=== PATIENT | female | born 1985 | race African-American/Black ===

== ENCOUNTER 2016-10-15 22:15 | Emergency (ER) | payer MEDICAID ==
[~2016-10-15] VITALS: Ht 160 cm; Wt 56.8 kg
[~2016-10-15 22:15] MED LIST: METR-1 PO
[2016-10-15 22:16] VITALS: BP 134/70; PULSE 98; RESP 16; TEMP 98.3; O2SAT 100
[2016-10-16] MEDS ORDERED: IBUP-232 PO (21:54)
== END 2016-10-16 01:12 | disposition left against medical advice (07) ==
LOC: NED 22:15
DX: R10.9 Unspecified abdominal pain (principal); R11.0 Nausea; Z53.21 Procedure and treatment not carried out due to patient leaving prior to being seen by health care provider
CPT/HCPCS: 99281

== ENCOUNTER 2016-10-16 18:37 | Emergency (ER) | payer MEDICAID ==
[~2016-10-16] VITALS: Ht 162.6 cm; Wt 65.0 kg
[2016-10-16 18:39] VITALS: BP 117/65; PULSE 96; RESP 16; TEMP 99; O2SAT 96
[2016-10-16] MEDS ORDERED: SODIUM CHLOR 0.9% 1000 ML INJ 1,000 ML IV SCH (18:53)
--- NOTE | 2016-10-16 18:58 | PD ---
HPI Chief Complaint: Complaint Time Seen by Provider: 18:54 Travel History International Travel<30 days: No Contact w/Intl Traveler<30days: No Traveled to known affect area: No History of Present Illness HPI 31-year-old Afro-Uzbek female coming in with right upper abdominal/flank pain , which she states has been present since September 30. Patient states last menstrual period ended on October 07. Patient denies fever, chills, vomiting, or diarrhea. Patient states she has had some intermittent nausea. Patient has no cough or chest pain. Patient states clear vaginal discharge since ending her period on 07 October. Patient states that pain is constant, and not worse with eating. Patient states it's about 8/10 today. Patient has no history of kidney stones in the past. Patient denies urinary burning, frequency, or urgency. Patient has no known drug allergies. PFSH Past Medical History Medical History: Denies Significant Hx Blood Disorders: No Diminished Hearing: No Reproductive: Yes (PROLONGED BLEEDING AFTER CHILDBIRTH. DX DYSFUNCTIONAL UTERINE BLEEDING.) Immunizations Current: No ?: Unknown LMP: 09-30-16 : 4 Para: 3 Miscarriage: 3 : 2 Past Surgical History Surgical History: No Previous Surgery Social History Alcohol Use: Yes (occas. ) Tobacco Use: Yes (1/2 cig ) Substance Use: No Allergies-Medications (Allergen,Severity, Reaction): Coded Allergies: No Known Allergies (Verified , 10/16/16) Reported Meds & Prescriptions Reported Meds & Active Scripts Active No Active Prescriptions or Reported Medications Review of Systems General / Constitutional: No: Fever, Chills Eyes: No: Visual changes HENT: No: Headaches Cardiovascular: No: Chest Pain or Discomfort Respiratory: No: Shortness of Breath Gastrointestinal: Positive: Nausea, Abdominal Pain (see history present illness.), No: Vomiting Genitourinary: Positive: Flank Pain, No: Urgency, Frequency, Dysuria Musculoskeletal: No: Pain Skin: No Rash Neurologic: No: Weakness Psychiatric: No: Depression Endocrine: No: Polydipsia Hematologic/Lymphatic: No: Easy Bruising Physical Exam Narrative GENERAL: Patient appears in no acute distress. Patient is ambulatory to the room without difficulty. SKIN: Warm and dry. Normal color. Normal turgor. HEAD: Atraumatic. Normocephalic. EYES: Pupils equal and round. No scleral icterus. No injection or drainage. ENT: No nasal bleeding or discharge. Mucous membranes pink and moist. NECK: Trachea midline. No JVD. CARDIOVASCULAR: Regular rate and rhythm. RESPIRATORY: No accessory muscle use. Clear to auscultation. Breath sounds equal bilaterally. GASTROINTESTINAL: Abdomen soft, mild right upper quadrant and question right lower quadrant discomfort, nondistended. Mild right CVA tenderness. Hepatic and splenic margins not palpable. PELVIC: Pelvic performed with nursing lay out and detail drafter. Outer labia appear normal. Pelvic shows yellowish discharge with odor. Patient is uncomfortable with speculum and bimanual exam. GC chlamydia and wet prep is sent to the lab. MUSCULOSKELETAL: Extremities without clubbing, cyanosis, or edema. No obvious deformities. NEUROLOGICAL: Awake and alert. No obvious cranial nerve deficits. Motor grossly within normal limits. Five out of 5 muscle strength in the arms and legs. Normal speech. PSYCHIATRIC: Appropriate mood and affect; insight and judgment normal. Data Data Last Documented VS Vital Signs Date Time Temp Pulse Resp B/P Pulse Ox O2 Delivery O2 Flow Rate FiO2 10/16/16 19:22 97 Room Air 10/16/16 18:39 99.0 96 16 117/65 Orders Complete Blood Count With Diff (10/16/16 18:53) Comprehensive Metabolic Panel (10/16/16 18:53) Lipase (10/16/16 18:53) Lactic Acid (10/16/16 18:53) Prothrombin Time / Inr (Pt) (10/16/16 18:53) Act Partial Throm Time (Ptt) (10/16/16 18:53) Urinalysis - C+S If Indicated (10/16/16 18:53) Iv Access Insert/Monitor (10/16/16 18:53) Ecg Monitoring (10/16/16 18:53) Oximetry (10/16/16 18:53) NPO (10/16/16 18:53) Ondansetron Inj (Zofran Inj) (10/16/16 19:00) Sodium Chlor 0.9% 1000 Ml Inj (Ns 1000 M (10/16/16 18:53) Sodium Chloride 0.9% Flush (Ns Flush) (10/16/16 19:00) Ketorolac Inj (Toradol Inj) (10/16/16 19:00) Ed Urine Pregnancytest Poc (10/16/16 18:53) Gc And Chlamydia Pcr (10/16/16 20:55) Wet Prep Profile (10/16/16 20:55) Azithromycin Powd Pack (Zithromax Powd P (10/16/16 21:45) Ceftriaxone Inj (Rocephin Inj) (10/16/16 21:45) Lidocaine 1% Inj (50 Ml) (Xylocaine 1% I (10/16/16 21:45) Labs Laboratory Tests Test 10/16/16 10/16/16 19:18 21:02 White Blood Count 8.2 TH/MM3 Red Blood Count 3.96 MIL/MM3 Hemoglobin 11.8 GM/DL Hematocrit 35.5 % Mean Corpuscular Volume 89.6 FL Mean Corpuscular Hemoglobin 29.7 PG Mean Corpuscular Hemoglobin 33.2 % Concent Red Cell Distribution Width 15.0 % Platelet Count 300 TH/MM3 Mean Platelet Volume 9.5 FL Neutrophils (%) (Auto) 53.5 % Lymphocytes (%) (Auto) 36.1 % Monocytes (%) (Auto) 6.7 % Eosinophils (%) (Auto) 2.8 % Basophils (%) (Auto) 0.9 % Neutrophils # (Auto) 4.4 TH/MM3 Lymphocytes # (Auto) 3.0 TH/MM3 Monocytes # (Auto) 0.6 TH/MM3 Eosinophils # (Auto) 0.2 TH/MM3 Basophils # (Auto) 0.1 TH/MM3 CBC Comment DIFF FINAL Differential Comment Prothrombin Time 10.2 SEC Prothromb Time International 0.9 RATIO Ratio Activated Partial 25.6 SEC Thromboplast Time Urine Color YELLOW Urine Turbidity CLEAR Urine pH 6.0 Urine Specific [place] 1.017 Urine Protein NEG mg/dL Urine Glucose (UA) NEG mg/dL Urine Ketones NEG mg/dL Urine Occult Blood NEG Urine Nitrite NEG Urine Bilirubin NEG Urine Urobilinogen LESS THAN 2.0 MG/DL Urine Leukocyte Esterase NEG Urine RBC 1 /hpf Urine WBC 3 /hpf Urine Squamous Epithelial 3 /hpf Cells Urine Mucus FEW /lpf Microscopic Urinalysis Comment CULT NOT INDICATED Sodium Level 140 MEQ/L Potassium Level 3.6 MEQ/L Chloride Level 105 MEQ/L Carbon Dioxide Level 27.4 MEQ/L Anion Gap 8 MEQ/L Blood Urea Nitrogen 7 MG/DL Creatinine 0.63 MG/DL Estimat Glomerular Filtration 135 ML/MIN Rate Random Glucose 87 MG/DL Lactic Acid Level 1.5 mmol/L Calcium Level 9.1 MG/DL Total Bilirubin 0.3 MG/DL Aspartate Amino Transf 16 U/L (AST/SGOT) Alanine Aminotransferase 20 U/L (ALT/SGPT) Alkaline Phosphatase 59 U/L Total Protein 6.9 GM/DL Albumin 3.5 GM/DL Lipase 158 U/L Clue Cells (Wet Prep) NONE SEEN Vaginal Trichomonas (Wet Prep) NONE SEEN Vaginal Yeast (Wet Prep) NONE SEEN MDM Medical Decision Making Medical Screen Exam Complete: Yes Emergency Medical Condition: Yes Differential Diagnosis Abdominal pain. Urinary tract infection. Renal colic. Ovarian cyst. Appendicitis. Narrative Course Patient is medically stable at time of exam. Patient is given 30 mg Toradol IV as well as 4 mg Zofran IV. Patient is given normal saline 1000 mL bolus IV. Labs ordered including CBC, CMP, PT PTT and INR, lipase, urinalysis All labs come back as negative. Patient seen by myself and Dr. Velez who recommends pelvic exam. Patient is pain-free on reassessment after Toradol and Zofran. Pelvic exam is performed with nursing staff lay out and detail drafter. GC chlamydia and wet prep are ordered. Wet prep shows no clue cells, no Trichomonas, and no yeast. GC and chlamydia are still pending. Patient is discussed with Dr. Khoury. Patient is going to be empirically treated with Rocephin IM and azithromycin by mouth. This was discussed with the patient. Patient is discharged home, and is to follow up with primary care or [facility] as needed. Patient is given ibuprofen 600 mg 4 times a day when necessary pain. Patient can return to emergency department worsening symptoms as needed. Diagnosis Primary Impression: Abdominal pain Qualified Code: R10.30 - Lower abdominal pain Referrals: [facility] Patient Instructions: General Instructions Additional Instructions: Patient is going to be empirically treated with Rocephin IM and azithromycin by mouth. This was discussed with the patient. Patient is discharged home, and is to follow up with primary care or women[facility] as needed. Patient is given ibuprofen 600 mg 4 times a day when necessary pain. Patient can return to emergency department worsening symptoms as needed. Med/Other Pt SpecificInfo: Prescription(s) given Scripts No Active Prescriptions or Reported Meds Disposition: DISCHARGE HOME Condition: Stable Ashkan Gupta Oct 16, 2016 18:58
[2016-10-16] MEDS ORDERED: ONDANSETRON HCL 4 MG/2 ML VIAL IVP ONE (19:00)
[2016-10-16] MEDS ORDERED: KETOROLAC TROMETHAMINE 30 MG/ML (IVP) VIAL IVP ONE (19:00)
[2016-10-16] MEDS ORDERED: SODIUM CHLORIDE 0.9% FLUSH 5 ML FLUSH IVF PRN (19:00)
[2016-10-16 19:22] VITALS: O2SAT 97
[2016-10-16 19:47] LABS: BLOOD, URINE NEG (NEG); COMMENT (UR) CULT NOT INDICATED; CULTURE IF INDICATED CULT NOT INDICATED; GLUCOSE,URINE NEG (NEG); KETONE, URINE NEG (NEG); MUCUS URINE FEW /lpf (OCC); NITRITE,URINE NEG (NEG); SQUAMOUS EPITHELIAL CELL URINE 3 /hpf (0-5); URINE COLOR YELLOW (YELLW/STRAW)
[2016-10-16 19:55] LABS: AUTOMATED NEUTROPHIL # 4.4 TH/MM3 (1.8-7.7); BASOPHIL # 0.1 TH/MM3 (0-0.2); BASOPHIL % 0.9 % (0.0-2.0); EOSINOPHIL # 0.2 TH/MM3 (0-0.4); EOSINOPHIL % 2.8 % (0.0-4.0); HEMATOCRIT 35.5 % (35.0-46.0); HEMO FLAGS DIFF FINAL; LYMPH % 36.1 % (9.0-44.0); MEAN CELL VOLUME 89.6 FL (80.0-100.0); MEAN CORPUSCULAR HEMOGLOBIN 29.7 PG (27.0-34.0); MEAN CORPUSCULAR HGB CONC 33.2 % (32.0-36.0); MONO % 6.7 % (0.0-8.0); NEUT % 53.5 % (16.0-70.0); PLATELET COUNT 300 TH/MM3 (150-450); RED BLOOD COUNT 3.96 MIL/MM3 (4.00-5.30); WHITE BLOOD COUNT 8.2 TH/MM3 (4.0-11.0)
[2016-10-16 19:56] LABS: APTT (PATIENT) 25.6 SEC (24.3-30.1); INTERNATIONAL NORMALIZED RATIO 0.9 RATIO; PROTHROMBIN TIME - PATIENT 10.2 SEC (9.8-11.6)
[2016-10-16 20:11] LABS: ANION GAP 8 MEQ/L (5-15); BICARBONATE 27.4 MEQ/L (21.0-32.0); BLOOD UREA NITROGEN 7 MG/DL (7-18); CHLORIDE 105 MEQ/L (98-107); GLOMERULAR FILTRATION RATE 135 ML/MIN (>89); POTASSIUM 3.6 MEQ/L (3.5-5.1); SODIUM (NA) 140 MEQ/L (136-145)
[2016-10-16 20:15] LABS: ALKALINE PHOSPHATASE 59 U/L (45-117); ALT (GPT) 20 U/L (10-53); AST (GOT) 16 U/L (15-37); TOTAL BILIRUBIN ADULT 0.3 MG/DL (0.2-1.0)
[2016-10-16] MEDS ORDERED: LIDOCAINE HCL 1% 50 ML VIAL IM ONE (21:45)
[2016-10-16] MEDS ORDERED: cefTRIAXone 250 MG VIAL IM ONE (21:45)
[2016-10-16] MEDS ORDERED: AZITHROMYCIN PWD FOR SUSP 1 GM PACKET PO ONE (21:45)
[2016-10-16] MEDS ORDERED: IBUP-232 PO (21:54)
[2016-10-16 23:15] LABS: CHLAMYDIA PCR NOT DETECTED (NOT DETECT); NEISSERIA PCR NOT DETECTED (NOT DETECT)
== END 2016-10-16 22:26 | disposition home or self-care (01) ==
LOC: NEPC 18:37
DX: R10.9 Unspecified abdominal pain (principal); Z72.0 Tobacco use
CPT/HCPCS: 80053; 81001; 83605; 83690; 84703; 85025; 85610; 85730; 87210; 87491; 87591; 96361; 96372; 96374; 96375; 99284; J0696; J1885; J2405; J7030

== ENCOUNTER 2017-01-05 18:56 | Emergency (ER) | payer MEDICAID ==
[~2017-01-05 18:56] MED LIST changes: +IBUP-232 PO; -METR-1 PO
[2017-01-05 18:57] VITALS: BP 110/66; PULSE 94; RESP 16; TEMP 98.5; O2SAT 100
== END 2017-01-05 21:19 | disposition left against medical advice (07) ==
LOC: NED 18:56
DX: R22.0 Localized swelling, mass and lump, head (principal)
CPT/HCPCS: 99281

== ENCOUNTER 2017-05-30 11:10 | Emergency (ER) | payer MEDICAID ==
[~2017-05-30] VITALS: Ht 162.6 cm; Wt 65.0 kg
[2017-05-30 11:12] VITALS: BP 116/73; PULSE 84; RESP 20; TEMP 98.6; O2SAT 100
--- NOTE | 2017-05-30 12:59 | PD ---
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 She says she woke up this morning and she feels sore inside her vagina and she's had some white discharge. She denies any abdominal pain, fevers or chills. History Past Medical Histgory LMP: 05/07/17 Social History Alcohol Use: Yes (occas. ) Tobacco Use: Yes (1/2 cig ) Allergies-Medications (Allergen,Severity, Reaction): Coded Allergies: No Known Allergies (Verified , 10/16/16) Reported Meds & Prescriptions Reported Meds & Active Scripts Active Ibuprofen 600 Mg Tab 600 Mg PO Q6H PRN Review of Systems General / Constitutional: No: Fever, Chills Gastrointestinal: No: Abdominal Pain Physical Exam Narrative GENERAL: Well-appearing, no acute distress, nontoxic SKIN: Warm and dry. HEAD: Atraumatic. Normocephalic. ENT: No nasal bleeding or discharge. Moist mucous membranes MUSCULOSKELETAL: No obvious deformities NEUROLOGICAL: Awake and alert. No obvious cranial nerve deficits. Motor grossly within normal limits. Normal speech. PSYCHIATRIC: Appropriate mood and affect; insight and judgment normal. Data Data Last Documented VS Vital Signs Date Time Temp Pulse Resp B/P (MAP) Pulse Ox O2 Delivery O2 Flow Rate FiO2 05/30/17 11:12 98.6 84 20 116/73 (87) 100 Room Air MDM Medical Screen Exam Complete: Yes Emergency Medical Condition: No Plan This is a 31-year-old female who presents to the emergency department with vaginal discharge and itching. She has no abdominal discomfort, fevers or chills. She has normal vital signs and is very well-appearing. I don't think this reflects an emergent complaint. Patient went through the medical screening process and elected to follow-up at [facility]. Primary Impression: Encounter for medical screening examination Rachel Holley MD May 30, 2017 12:59
== END 2017-05-30 12:58 | disposition left against medical advice (07) ==
LOC: NEPD 11:10
DX: N89.8 Other specified noninflammatory disorders of vagina (principal); L29.2 Pruritus vulvae; Z72.0 Tobacco use
CPT/HCPCS: 99281

== ENCOUNTER 2017-07-07 19:59 | Emergency (ER) | payer OTHER, MEDICAID ==
[~2017-07-07] VITALS: Ht 162.6 cm; Wt 60.0 kg
[2017-07-07 20:01] VITALS: BP 110/72; PULSE 92; RESP 16; TEMP 98.5; O2SAT 100
[2017-07-07] MEDS ORDERED: DICL75TA PO (21:00)
[2017-07-07] MEDS ORDERED: NAPROXEN 500 MG TAB PO ONE (21:00)
[2017-07-07] MEDS ORDERED: CYCL1TAB29 PO (21:00)
[2017-07-07] MEDS ORDERED: CYCLOBENZAPRINE HCL 10 MG TAB PO ONE (21:00)
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
== END 2017-07-07 21:29 | disposition home or self-care (01) ==
LOC: NEPK 19:59
DX: M54.5 Low back pain (principal); V43.62XA Car passenger injured in collision with other type car in traffic accident, initial encounter
CPT/HCPCS: 99284

== ENCOUNTER 2017-08-08 09:56 | Emergency (ER) | payer MEDICAID ==
[~2017-08-08] VITALS: Ht 162.6 cm; Wt 63.0 kg
[~2017-08-08 09:56] MED LIST changes: +CYCL10TA PO; +DICL75TA PO
[2017-08-08 09:58] VITALS: BP 132/74; PULSE 96; RESP 18; TEMP 98.6; O2SAT 99
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
== END 2017-08-08 11:38 | disposition home or self-care (01) ==
LOC: NEPE 09:56
DX: O26.899 Other specified pregnancy related conditions, unspecified trimester (principal); M54.5 Low back pain; G89.29 Other chronic pain; Z72.0 Tobacco use
CPT/HCPCS: 84703; 99282

== ENCOUNTER 2017-09-02 12:31 | Emergency (ER) | payer MEDICAID ==
[~2017-09-02] VITALS: Ht 162.6 cm; Wt 64.1 kg
[2017-09-02 12:32] VITALS: BP 124/70; PULSE 95; RESP 20; TEMP 98.6; O2SAT 100
[2017-09-02 13:24] LABS: BLOOD, URINE NEG (NEG); GLUCOSE,URINE NEG (NEG); KETONE, URINE NEG (NEG); NITRITE,URINE NEG (NEG); PH, URINE 7.5 (5.0-8.5); URINE COLOR YELLOW (YELLW/STRAW)
[2017-09-02 13:27] LABS: RBC, URINE 0-3 /hpf (0-3); SQUAMOUS EPITHELIAL CELL URINE 0-5 /hpf (0-5)
--- NOTE | 2017-09-02 13:27 | PD ---
HPI Chief Complaint: Related Problem Time Seen by Provider: 13:27 Travel History International Travel<30 days: No Contact w/Intl Traveler<30days: No Traveled to known affect area: No History of Present Illness HPI 31-year-old female presents to the emergency department for evaluation. He found out recently she was 6 weeks and began having mild abdominal cramping 2 days ago. She states today when she was wiping she had blood on her toilet paper. Denies any blood clots or active bleeding. Denies any recent illnesses, fever, or chills. She has no other symptoms to report. PFSH Past Medical History Hx Anticoagulant Therapy: No Blood Disorders: No Cardiovascular Problems: No Chemotherapy: No Cerebrovascular Accident: No Diabetes: No Diminished Hearing: No Reproductive: Yes (PROLONGED BLEEDING AFTER CHILDBIRTH. DX DYSFUNCTIONAL UTERINE BLEEDING.) Respiratory: No Immunizations Current: No ?: LMP: 07/06/2017 : 9 Para: 4 Miscarriage: 2 : 3 Dilation and Curettage (D&C): Yes Past Surgical History Hysterectomy: No Social History Alcohol Use: Yes (occas. ) Tobacco Use: Yes (1/2 cig ) Substance Use: No Allergies-Medications (Allergen,Severity, Reaction): Coded Allergies: No Known Allergies (Verified , 10/16/16) Reported Meds & Prescriptions Reported Meds & Active Scripts Active Diclofenac Sodium DR (Diclofenac Sodium) 75 Mg Tabdr 75 Mg PO BID Flexeril (Cyclobenzaprine HCl) 10 Mg Tab 10 Mg PO TID Ibuprofen 600 Mg Tab 600 Mg PO Q6H PRN Review of Systems Except as stated in HPI: all other systems reviewed are Neg Physical Exam Narrative GENERAL: Well-nourished female patient, no acute distress SKIN: Warm and dry. HEAD: Atraumatic. Normocephalic. EYES: Pupils equal and round. No scleral icterus. No injection or drainage. ENT: No nasal bleeding or discharge. Mucous membranes pink and moist. NECK: Trachea midline. No JVD. CARDIOVASCULAR: Elevated rate RESPIRATORY: No accessory muscle use. GASTROINTESTINAL: Abdomen nondistended. MUSCULOSKELETAL: . No obvious deformities. NEUROLOGICAL: Awake and alert. No obvious cranial nerve deficits. Motor grossly within normal limits. Five out of 5 muscle strength in the arms and legs. Normal speech. Data Data Last Documented VS Vital Signs Date Time Temp Pulse Resp B/P (MAP) Pulse Ox O2 Delivery O2 Flow Rate FiO2 09/02/17 12:32 98.6 95 20 124/70 (88) 100 Room Air Orders Orders Urinalysis - C+S If Indicated (09/02/17 12:48) Ed Urine Pregnancytest Poc (09/02/17 12:48) Labs Laboratory Tests Test 09/02/17 12:50 Urine Color YELLOW Urine Turbidity CLEAR Urine pH 7.5 Urine Specific [place] 1.024 Urine Protein TRACE mg/dL Urine Glucose (UA) NEG mg/dL Urine Ketones NEG mg/dL Urine Occult Blood NEG Urine Nitrite NEG Urine Bilirubin NEG Urine Urobilinogen 0.2 MG/DL Urine Leukocyte Esterase NEG Urine RBC 0-3 /hpf Urine WBC 3-5 /hpf Urine Squamous Epithelial Cells 0-5 /hpf Urine Amorphous Sediment LARGE Urine Bacteria NONE /hpf Microscopic Urinalysis Comment CULT NOT INDICATED MDM Medical Decision Making Medical Screen Exam Complete: Yes Emergency Medical Condition: Yes Medical Record Reviewed: Yes Differential Diagnosis Vaginal bleeding versus threatened versus missed versus UTI Narrative Course 31-year-old female presents to the emergency department for evaluation. Patient appears without distress in triage. Workup was initiated. AMA: The risks of leaving against medical advice without further evaluation treatment were discussed with the patient. These risks include cardiac dysfunction, cardiac dysrhythmia, possible heart attack, possible stroke or . The patient indicated understanding of these risks and appeared to have the capacity to make this decision. Diagnosis Primary Impression: Abdominal pain Qualified Codes: R10.30 - Lower abdominal pain, unspecified Disposition: 07 AGAINST MEDICAL ADVICE Condition: Stable Mabel Chaudhary LE Sep 02, 2017 13:27
[2017-09-02 13:28] LABS: COMMENT (UR) CULT NOT INDICATED; CULTURE IF INDICATED CULT NOT INDICATED
== END 2017-09-02 13:26 | disposition left against medical advice (07) ==
LOC: NED 12:31
DX: O26.891 Other specified pregnancy related conditions, first trimester (principal); R10.30 Lower abdominal pain, unspecified; O99.331 Smoking (tobacco) complicating pregnancy, first trimester; Z79.899 Other long term (current) drug therapy; Z3A.01 Less than 8 weeks gestation of pregnancy
CPT/HCPCS: 81001; 84703; 99281

== ENCOUNTER 2018-01-05 20:55 | Emergency (ER) | payer MEDICAID ==
[2018-01-05 21:53] LABS: BILIRUBIN, URINE NEG (NEG); BLOOD, URINE NEG (NEG); GLUCOSE,URINE NEG (NEG); KETONE, URINE NEG (NEG); MUCUS URINE FEW /lpf (OCC); NITRITE,URINE NEG (NEG); SQUAMOUS EPITHELIAL CELL URINE 10 /hpf (0-5); URINE COLOR LIGHT-YELLOW (YELLW/STRAW); URINE LEUKOCYTE ESTERASE TRACE (NEG)
[2018-01-05] MEDS ORDERED: ACETAMINOPHEN 500 MG CPLT PO ONE (22:15)
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
== END 2018-01-05 22:32 | disposition home or self-care (01) ==
LOC: HOBED 20:55
DX: O26.892 Other specified pregnancy related conditions, second trimester (principal); R10.9 Unspecified abdominal pain; R10.2 Pelvic and perineal pain; Z3A.26 26 weeks gestation of pregnancy; Z79.899 Other long term (current) drug therapy
CPT/HCPCS: 81001; 99283

== ENCOUNTER → 2018-02-14 | Emergency (ER) | payer MEDICAID ==
--- NOTE | 2018-02-14 09:30 | PD ---
HPI Chief Complaint Vaginal discharge Travel History International Travel<30 Days: No Contact w/Intl Traveler<30Days: No Known Affected Area: No History of Present Illness HPI 32-year-old G 11 [id number] care uncomplicated per patient report Patient presents complaining of cramps and tightening yesterday that occurred all day, approximately 2-3 times per hour. She reports that the cramping and contractions have resolved but this morning her underwear were wet and she noticed some yellow discharge. There were no aggravating or alleviating factors. No attempted treatments to the contractions or the discharge/leaking. She denies any recent intercourse and reports that she last had sex 1 month ago. Denies any big gush of water. She denies any vaginal bleeding. She reports good movement. She denies any other obstetrical complaints today. Weeks Gestation: 31 Para: 4 : 11 History Past Medical History Medical History: Denies Significant Hx Obstetric History Obstetric History T11 P4064 EAB 3-4, SAB 2-3 Past Surgical History Narrative Surgical EAB 3-4 Family History Family History: Negative Social History Alcohol Use: No Tobacco Use: No Substance Abuse: No Allergies-Medications (Allergen,Severity, Reaction): Coded Allergies: No Known Allergies (Verified , 10/16/16) Home Meds Active Scripts Diclofenac Sodium DR (Diclofenac Sodium DR) 75 Mg Tabdr, 75 MG PO BID, #14 TAB 0 Refills Prov:Hayder Suresh MD 07/07/17 Cyclobenzaprine (Flexeril) 10 Mg Tab, 10 MG PO TID for Muscle Spasm, #21 TAB 0 Refills Prov:Hayder Suresh MD 07/07/17 Ibuprofen (Ibuprofen) 600 Mg Tab, 600 MG PO Q6H Y for Pain/Inflammation, #40 TAB Prov:Shawnee Khoury MD 10/16/16 Review of Systems Except as stated in HPI: all other systems reviewed are Neg Physical Exam Narrative GENERAL: Well-nourished, well-developed patient. SKIN: Warm and dry. HEAD: Normocephalic and atraumatic. EYES: No scleral icterus. No injection or drainage. ENT: No nasal drainage noted. Mucous membranes pink. Airway patent. NECK: Supple, trachea midline. No JVD. CARDIOVASCULAR: Regular rate and rhythm without murmurs, gallops, or rubs. RESPIRATORY: Breath sounds equal bilaterally. No accessory muscle use. BREASTS: Deferred ABDOMEN/GI: Abdomen soft, non-tender, bowel sounds present, no rebound, no guarding Gravid GENITOURINARY: External Genitalia: intact and normal in appearance. Normal advice. Physiologic appearing discharge. Grossly normal rugated. No cervical or vaginal masses. The cervix appears visually normal. fibronectin, amnisure, and wet prep were obtained. Amnisure was negative. FHT's: heart tones are in the 130s with moderate long-term breathability, good accelerations, no decelerations noted. There is a category 1 heart rate tracing reactive NST. EXTREMITIES: No cyanosis or edema. BACK: Nontender without obvious deformity. NEUROLOGICAL: Awake and alert. Motor and sensory grossly within normal limits. Normal speech. Psychiatric: Grossly normal memory and affect Musculoskeletal: Grossly normal range of motion, gait, muscle strength MDM Plan Assessment/plan: 1. IUP at 31.6 2. Vaginal discharge: No evidence of significant vaginal discharge noted on examination however wet prep was sent for further evaluation to the lab. 3. No evidence of leaking of fluid, negative amnio sure, strict P PROM precautions 4. No evidence of labor, strict labor precautions, close cervix on examination 5. well-being: Reassuring testing with reactive NST and category 1 heart rate tracing. kick counts daily 6. Follow-up with primary OB in 2-3 days or sooner if needed. Disposition: 01 DISCHARGE HOME (If amnisure negative and cleared by Dr. Oconnor ) Condition: Trice More MD February 14, 2018 09:30
[2018-02-14 10:13] LABS: BACTERIA, URINE RARE /hpf; BILIRUBIN, URINE NEG (NEG); BLOOD, URINE NEG (NEG); GLUCOSE,URINE NEG (NEG); KETONE, URINE NEG (NEG); MUCUS URINE FEW /lpf (OCC); NITRITE,URINE NEG (NEG); PH, URINE 7.5 (5.0-8.5); SQUAMOUS EPITHELIAL CELL URINE 3 /hpf (0-5); TRANSITIONAL EPI CELLS, URINE <1 /hpf; URINE COLOR YELLOW (YELLW/STRAW); URINE LEUKOCYTE ESTERASE LARGE (NEG)
== END | disposition home or self-care (01) ==
LOC: HOBED 08:31
DX: O26.893 Other specified pregnancy related conditions, third trimester (principal); N89.8 Other specified noninflammatory disorders of vagina; Z3A.31 31 weeks gestation of pregnancy
CPT/HCPCS: 81001; 84112; 87210; 99283